=== PATIENT | male | born 1950 | race Caucasian/White ===

== ENCOUNTER 2020-04-23 19:43 | Emergency (ER) | payer OTHER, SELFPAY ==
[2020-04-23 20:08] VITALS: BP 133/71; PULSE 65; RESP 18; TEMP 36.7; O2SAT 97
--- NOTE | 2020-04-23 20:16 | ED.WOUNDLAC ---
HPI - Wound/Laceration General Chief Complaint: Wound/Laceration Stated Complaint: laceration Time Seen by Provider: 04/23/20 20:16 Source: patient Mode of arrival: ambulatory Limitations: no limitations History of Present Illness HPI narrative: Maurice Alvaerz is a 9 yo male who fell 1.5 hours ago doing exercises and cut L eyebrow .Superficial laceration Related Data Home Medications Medication Instructions Recorded Confirmed aspirin 325 mg tablet 325 mg PO DAILY 12/03/19 04/23/20 benztropine 1 mg tablet 1 mg PO DAILY tablet 12/03/19 04/23/20 blood sugar diagnostic #10 each 12/03/19 bupropion HCl 200 mg tablet,12 hr 200 mg PO DAILY tablet 12/03/19 04/23/20 sustained-release lancets #50 each 12/03/19 mirtazapine 30 mg tablet 30 mg PO .COMPLEX 12/03/19 04/23/20 olanzapine 7.5 mg tablet 7.5 mg PO .COMPLEX 12/03/19 04/23/20 pen needle, diabetic 31 gauge x #30 each 12/03/1901/11 syringe with needle #300 each 12/03/19 insulin glargine [Lantus Solostar 40 unit SUBCUT 04/23/20 U-100 Insulin] Allergies Allergy/AdvReac Type Severity Reaction Status Date / Time No Known Allergies Allergy Verified 04/23/20 19:45 Review of Systems Review of Systems: Narrative: CONSTITUTIONAL: Denies fever, chills, sweats. EYES: Denies visual changes, redness, discharge. ENT: Denies rhinorrhea, congestion, sore throat, otalgia. CARDIOVASCULAR: Denies chest pain, palpitations, edema. RESPIRATORY: Denies dyspnea, wheezing, cough GASTROINTESTINAL: Denies abdominal pain, nausea, vomiting, diarrhea. GENITOURINARY: Denies dysuria, hematuria, abnormal discharge SKIN: Denies rash or itching.small lac to L eyebrow NEUROLOGIC: Denies numbness, or focal weakness. PSYCHIATRIC: Denies anxiety or depression. [facility] Family History Family History (Updated 04/23/20 @ 20:43 by Rosa Anguiano CNP) Other Hypertension Social History Social History (Updated 04/23/20 @ 20:43 by Rosa Anguiano CNP) Smoking status: Never smoker Alcohol intake: current Gender identity (if verbalized by the patient): Male Comments At time of signature, I agree with nursing past medical, surgical, social and family history. There is no relevant family history pertinent to the presenting complaint. Exam Narrative: Exam Narrative: GENERAL: This is a well-nourished, well-developed patient, in mild distress. HEAD: normocephalic, atraumatic. EYES: Sclera clear/white. Vision is grossly intact. EARS: External ears normal, auditory canals clear and without drainage, TMs normal without perforation. Hearing grossly intact. NOSE: External nose normal without nasal discharge, nares without redness, no rhinorrhea. THROAT: Mucous membranes moist, posterior pharynx NECK: Neck supple, non-tender CARDIOVASCULAR: Regular rate and rhythm without murmurs, gallops, or rubs. RESPIRATORY: Clear to auscultation. Breath sounds equal bilaterally. No wheezes, rales, or rhonchi. GASTROINTESTINAL: Abdomen soft, non-tender, SKIN: warm, intact with no suspicious lesions or rash, good texture and turgor.1.5 cm linear laceration, L eyebrow NEURO: awake, alert, and oriented to person, place and time. There were no obvious focal neurologic abnormalities. Steady gait EXTREMITIES: Normal range of motion. BACK: Nontender without deformity Course Course Emergency Course: Superficial lac repair done- tolerated well Boostrix given Vital Signs Vital signs: Vital Signs Temperature 98.0 F 04/23/20 20:08 Pulse Rate 65 04/23/20 20:08 Respiratory Rate 18 04/23/20 20:08 Blood Pressure 133/71 04/23/20 20:08 Pulse Oximetry 97 04/23/20 20:08 Temperature 98.0 F 04/23/20 20:08 Pulse Rate 65 04/23/20 20:08 Respiratory Rate 18 04/23/20 20:08 Blood Pressure 133/71 04/23/20 20:08 Pulse Oximetry 97 04/23/20 20:08 Procedures Laceration Laceration 1: Date: 04/23/20 Time: 20:30 Site: face Size (cm): 1.5 [place]
[2020-04-23] MEDS: TETANUS,DIPHTHERIA,AC PERTUSSIS ADULT (0.5 ML) BOOSTRIX IM (20:33)
== END 2020-04-23 20:50 | disposition home or self-care (01) ==
PROVIDERS: Emergency Provider Nurse Practitioner; PCP Emergency Medicine
DX: S01.112A Laceration without foreign body of left eyelid and periocular area, initial encounter (principal); Z23 Encounter for immunization; G20 Parkinson's disease; Z95.1 Presence of aortocoronary bypass graft; E78.00 Pure hypercholesterolemia, unspecified; I10 Essential (primary) hypertension; I25.10 Atherosclerotic heart disease of native coronary artery without angina pectoris; K21.9 Gastro-esophageal reflux disease without esophagitis; N40.0 Benign prostatic hyperplasia without lower urinary tract symptoms; E11.9 Type 2 diabetes mellitus without complications; Z79.82 Long term (current) use of aspirin; Z79.4 Long term (current) use of insulin; Z79.84 Long term (current) use of oral hypoglycemic drugs; W19.XXXA Unspecified fall, initial encounter
CPT/HCPCS: 12011; 90471; 90715; 99212; G0463

== ENCOUNTER 2021-04-27 09:07 | Outpatient (CLI) | payer OTHER, SELFPAY ==
[2021-04-27 13:39] LABS: Creatinine Urine 60.5 mg/dL
[2021-04-27 13:41] LABS: MALB Creatinine Ratio < 9.9 mg/g (0-30); Microalbumin Urine Random < 6.0 mg/L (0-16.7)
== END 2021-04-27 09:08 | disposition home or self-care (01) ==
PROVIDERS: PCP Emergency Medicine; Visit Provider Emergency Medicine
DX: E11.9 Type 2 diabetes mellitus without complications (principal)
CPT/HCPCS: 82043

== ENCOUNTER 2023-02-07 13:43 | Outpatient (CLI) | payer OTHER, SELFPAY ==
[2023-02-07 14:02] LABS: Hematocrit 43.2 % (42.0-52.0); Hemoglobin 14.1 g/dL (14.0-18.0); Mean Corpuscular HGB Conc 32.6 g/dl (32-36); Mean Corpuscular Hemoglobin 30.5 pg (26-34); Mean Corpuscular Volume 93.3 fl (80-100); Mean Platelet Volume 10.4 fl (7.4-10.4); Platelet Count Result 224 k/mm3 (150-375); Red Blood Count 4.63 M/mm3 (4.6-6.20); Red Cell Distribution Width 13.6 % (11.5-14.5); White Blood Count 10.6 K/mm3 (4.5-10.0)
== END 2023-02-07 13:44 | disposition home or self-care (01) ==
LOC: ANHLAB 13:45
PROVIDERS: PCP Emergency Medicine; Visit Provider Nurse Practitioner
DX: R63.0 Anorexia (principal); R63.4 Abnormal weight loss
CPT/HCPCS: 36415; 85027

== ENCOUNTER 2023-02-16 07:55 | Outpatient (CLI) | payer OTHER, SELFPAY ==
--- NOTE | ~2023-02-16 | NM_ITS ---
EXAM: NM gastric emptying study DATE: 02/16/2023 13:16 CDT INDICATION: Early satiety TECHNIQUE: A gastric emptying study was performed using the methodology of Ana Maíra LOREDO, et al. J Nucl Med 2007; 48:568-572. The patient was given a meal consisting of 2 scrambled eggs labeled with 0.981 mCi Tc-99m sulfur colloid, 2 slices of toast, two packages of jam, and approximately 120 mL of water . Simultaneous anterior and posterior 1-min images of the abdomen were obtained with the patient supi ne at multiple time points over a total period of 4 hours. The geometric mean of anterior and posteri or views was determined, and the percentage retention was calculated for each time point. COMPARISON: None. FINDINGS: Gastric retention of the radiotracer-labeled meal was 65%, 10%, and 3% at the 1-hour, 2-ho ur, and 4-hour time points, respectively. With this technique, apparent rapid gastric emptying is sug gested by <30% gastric retention at 1 hour. Delayed gastric emptying is defined by gastric retention of >90% at 1 hour, >60% retention at 2 hours, or >10% retention at 4 hours. IMPRESSION: 1. Normal gastric emptying. Reviewed, dictated and finalized at location A. IMPRESSION: 1. Normal gastric emptying.
== END 2023-02-16 07:56 | disposition home or self-care (01) ==
PROVIDERS: PCP Emergency Medicine; Visit Provider Nurse Practitioner
DX: R63.0 Anorexia (principal); R63.4 Abnormal weight loss
CPT/HCPCS: 78264; A9541

== ENCOUNTER 2023-04-06 16:40 | Emergency (ER) | payer OTHER, SELFPAY ==
[2023-04-06 16:43] VITALS: BP 140/68; PULSE 66; RESP 16; TEMP 36.7; O2SAT 99
[2023-04-06 17:15] LABS: Basophils Absolute Auto 0.1 K/mm3 (0.0-0.1); Basophils Percent Auto 0.6 % (0.2-1.2); Eosinophils Absolute Auto 0.3 K/mm3 (0-0.3); Eosinophils Percent Auto 2.6 % (0-4.4); Hematocrit 41.1 % (42.0-52.0); Hemoglobin 13.5 g/dL (14.0-18.0); Immature Granulocyte Absolute 0.03 K/mm3 (0.00-0.031); Immature Granulocyte Percent A 0.3 % (0-0.5); Lymphocytes Absolute Auto 2.62 K/mm3 (0.9-3.2); Lymphocytes Percent Auto 25.7 % (18.3-44.2); Mean Corpuscular HGB Conc 32.8 g/dl (32-36); Mean Corpuscular Hemoglobin 30.6 pg (26-34); Mean Corpuscular Volume 93.2 fl (80-100); Mean Platelet Volume 10.4 fl (7.4-10.4); Monocytes Absolute Auto 0.5 K/mm3 (0.1-0.6); Monocytes Percent Auto 5.2 % (2.6-8.5); Neutrophils Absolute Auto 6.7 K/mm3 (1.3-6.7); Neutrophils Percent Auto 65.6 % (45.5-73.1); Platelet Count Result 239 k/mm3 (150-375); Red Blood Count 4.41 M/mm3 (4.6-6.20); Red Cell Distribution Width 13.4 % (11.5-14.5); White Blood Count 10.2 K/mm3 (4.5-10.0)
[2023-04-06 17:26] LABS: Ethanol < 10 mg/dL (<10)
[2023-04-06 17:27] LABS: Alanine Aminotransferase 21 U/L (6-50); Albumin Level 4.9 g/dL (3.5-5.1); Alkaline Phosphatase 86 U/L (38-126); Anion Gap 9 mmol/L (8-16); Aspartate Amino Transferase 26 U/L (17-59); Bilirubin,Total 0.6 mg/dL (0.2-1.3); Blood Urea Nitrogen 24 mg/dL (9-20); Calcium 9.4 mg/dL (8.4-10.2); Carbon Dioxide 29 mmol/L (22-30); Chloride 101 mmol/L (98-107); Estimated CRCL calculation 59 ml/min; Estimated Glomerular Filt Rate > 60; Glucose 190 mg/dL (65-110); Potassium 4.4 mmol/L (3.4-5.0); Sodium 139 mmol/L (137-145)
[2023-04-06 18:49] VITALS: PULSE 64
[2023-04-06 18:50] VITALS: BP 142/69; PULSE 63; RESP 18; O2SAT 100
[2023-04-06 19:01] LABS: Appearance Urine Clear (Clear); Bacteria Urine None Seen /hpf; Bilirubin Urine Negative (Negative); Blood Urine Negative (Negative); Color Urine Yellow (Yellow); Glucose Urine UA 2+ mg/dL (Negative); Ketones Urine 1+ mg/dL (Negative); Leukocyte Esterase Ur Trace LEU/UL (Negative); Nitrate Urine Negative (Negative); Protein Urine Negative (Negative); RBC Urine 0-2 /hpf (0-2); Specific Grav Ur 1.025 (1.001-1.035); Squamous Epithelial Cell Urine Few /hpf (Few)
[2023-04-06 19:04] LABS: Add Urine Microscopic? YES
[2023-04-06 19:11] LABS: Amphetamine Screen Urine Negative (Negative); Barbiturate Screen Urine Negative (Negative); Benzodiazepines Screen Urine Negative (Negative); Cannabinoid Screen Urine Negative (Negative); Cocaine Screen Urine Negative (Negative); Methadone Screen Urine Negative (Negative); Opiate Screen Urine Negative (Negative); Phencyclidine Screen Urine Negative (Negative)
--- NOTE | 2023-04-06 19:51 | ED.GENADULT ---
HPI - General Adult General Chief complaint: Altered Mental Status Stated complaint: [facility] Time Seen by Provider: 04/06/23 19:12 History of Present Illness HPI narrative: Patient is a 72-year-old gentleman who presents the emergency department with chief complaint of needs mental health evaluation. Patient has prior history of schizophrenia and has been a resident of [facility] with a local assisted living facilities for about a year family has noticed over the last month or so that he has been acting similar to whenever he has had mental health episodes in the past. 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 the patient was brought in by EMS after he was apparently trying to hitchhike and mated to a towing pilot gas station where EMS and PD were called the family reports that he has had ECT treatments before in the past the last one about 5 years ago the patient denies suicidal or homicidal ideation Related Data Home Medications Medication Instructions Recorded Confirmed carbidopa ER 25 mg-levodopa 100 mg 1 tablet PO BID 03/15/22 02/07/23 tablet,extended release mirtazapine 15 mg tablet 15 mg PO QHS 03/15/22 02/07/23 olanzapine 5 mg tablet (Zyprexa) 5 mg PO QHS 03/15/22 02/07/23 trihexyphenidyl 2 mg tablet 2 mg PO QPM 03/15/22 02/07/23 Allergies Allergy/AdvReac Type Severity Reaction Status Date / Time No Known Allergies Allergy Verified 04/06/23 18:49 Review of Systems Review of Systems: A 10 system review of systems was completed on the patient and is negative except for what is stated in the HPI. Nursing and ancillary documentation was reviewed. [facility] Past Medical History Medical History Abnormal weight loss Change in bowel habits Decrease in appetite Diabetes mellitus Early satiety GERD (gastroesophageal reflux disease) Hx of colonic polyps Parkinsons Family History Family History Other Hypertension Social History Social History Smoking packs per day: 1 Smoking cigarettes per day: 20.0 Years smoked: 12 Smoking pack-years: 12.00 Smoking status: Former smoker Tobacco type: cigarettes Second hand tobacco smoke exposure: No Smoking end date: 10/29/71 Alcohol intake: never Substance use: never Substance use type: does not use Gender identity (if verbalized by the patient): Male Exam Narrative: GENERAL: Well-appearing, well-nourished, and in no acute distress. HEAD: Normocephalic, atraumatic. EYES: PERRLA and EOMI. ENT: Nares clear, no rhinorrhea or epistaxis. Mucous membranes moist. NECK: Supple. CHEST: Clear to auscultation. No respiratory distress. HEART: Regular rate and rhythm. No murmur heard. Normal peripheral pulses. ABDOMEN: Soft, nontender, nondistended, normal active bowel sounds. EXTREMITIES: Normal range of motion. No edema. SKIN: Warm, dry, no rash. NEURO: No focal deficits. Alert and oriented x3. PSYCH: Normal mood and affect. Course Vital Signs Vital signs: Vital Signs Temperature 36.7 C 04/06/23 16:43 Pulse Rate 66 04/06/23 16:43 Respiratory Rate 16 04/06/23 16:43 Blood Pressure 140/68 04/06/23 16:43 Pulse Oximetry 99 04/06/23 16:43 Oxygen Delivery Room Air 04/06/23 16:43 Temperature 36.7 C 04/06/23 16:43 Pulse Rate 63 04/06/23 18:50 Respiratory Rate 18 04/06/23 18:50 Blood Pressure 142/69 H 04/06/23 18:50 Pulse Oximetry 100 04/06/23 18:50 Oxygen Delivery Room Air 04/06/23 16:43 Medical Decision Making [facility] Narrative Medical decision making narrative: Differential diagnosis includes underlying medical cause such as electrolyte abnormality infection, mental health related issue due to the patient's schizophrenia
[2023-04-06 20:29] LABS: Influenza A QL RT-PCR Negative (Negative); Influenza B QL RT-PCR Negative (Negative); RSV RNA, RT-PCR Negative (Negative); SARS-CoV-2 RNA PCR Negative (Negative)
[2023-04-06 20:35] LABS: Acetaminophen < 10 ug/mL (10-30); Salicylate < 1.0 mg/dL (2-20)
[2023-04-06 23:57] VITALS: BP 150/88; PULSE 80; RESP 12; O2SAT 100
== END 2023-04-06 23:59 ==
PROVIDERS: Emergency Medicine; Emergency Provider Emergency Medicine; PCP Emergency Medicine
DX: F32.A Depression, unspecified (principal); Z20.822 Contact with and (suspected) exposure to COVID-19; G20 Parkinson's disease; E11.9 Type 2 diabetes mellitus without complications; K21.9 Gastro-esophageal reflux disease without esophagitis; Z79.899 Other long term (current) drug therapy
CPT/HCPCS: 36415; 80053; 80307; 81001; 84443; 85025; 87086; 87637; 99284

== ENCOUNTER → 2023-07-10 12:51 | Outpatient (CLI) | payer OTHER, SELFPAY ==
--- NOTE | ~2023-07-10 | MR_ITS ---
MRI of the left shoulder Technique: Axial proton-density fat-sat images, coronal proton density fat-sat and T2 fat-sat images, and sagittal T1-weighted and T2 fat-sat images were acquired. Clinical History: Pain Findings: There is moderate to severe AC joint degenerative change. There is subacromial spur. Coraco clavicular, coracoacromial, and coracohumeral ligaments probably remain intact. There are complete, full-thickness tears involving the entirety of the supraspinatus and infraspinatu s tendons, which are retracted approximately to the level of glenoid. Fluid-filled gap measures appro ximately 5.1 x 4.7 cm in extent. Subscapularis tendon appears to be intact with moderate tendinosis. Tendon of long head of the biceps demonstrates possible longitudinal split tear in the bicipital groo ve. There is degenerative tearing of the superior labrum, probably extending to the posterior superior po rtion. Humeral head is high riding, with moderate osteoarthritis of the glenohumeral joint. Inferior glenohu meral ligament is intact. Probable mild atrophy of the supraspinatus and infraspinatus muscle bellies . Impression: Complete, full-thickness tears involving entirety of the specimen at its and infraspinatus tendons, a s detailed above. Probable mild atrophy of the associated muscle bellies. High riding humeral head with moderate osteoarthritis of the glenohumeral joint. Degenerative tearing of the superior labrum, with probable extension to the posterior superior portio n. Moderate to severe AC joint degenerative change. Suspected longitudinal split tear of the biceps tendon within the bicipital groove. Reviewed, dictated and finalized at location M. Impression: Complete, full-thickness tears involving entirety of the specimen at its and in fraspinatus tendons, as detailed above. Probable mild atrophy of the associated muscle bellies. High riding humeral head with moderate osteoarthritis of the glenohumeral joint . Degenerative tearing of the superior labrum, with probable extension to the pos terior superior portion. Moderate to severe AC joint degenerative change. Suspected longitudinal split tear of the biceps tendon within the bicipital gali ove.
== END ==
PROVIDERS: PCP Emergency Medicine; Visit Provider Emergency Medicine
DX: S46.812A Strain of other muscles, fascia and tendons at shoulder and upper arm level, left arm, initial encounter (principal); M19.012 Primary osteoarthritis, left shoulder; T14.90XA Injury, unspecified, initial encounter
CPT/HCPCS: 73221

== ENCOUNTER 2023-12-13 22:43 | Emergency (ER) | payer OTHER, SELFPAY ==
[2023-12-13 22:46] VITALS: BP 145/63; PULSE 58; RESP 14; TEMP 36.6; O2SAT 99
[2023-12-13 23:48] VITALS: BP 146/84; PULSE 64; RESP 15; O2SAT 100
--- NOTE | 2023-12-14 00:58 | ED.GENADULT ---
HPI - General Adult General Chief complaint: Unspecified Stated complaint: constipation Time Seen by Provider: 12/13/23 23:47 Source: patient Limitations: no limitations History of Present Illness HPI narrative: Patient is a 73-year-old male presents to the emergency department complaining of constipation. Patient states he has had difficulty with his bowel movements for the past 10 days and has only had small palpable so and no significant large bowel movement when he is hoped for. Patient admits to an extensive history of constipation and usually gets better with time and stool softeners. Patient has tried MiraLax was recently at this afternoon without any significant relief. Patient is to history of colonoscopies. Patient denies seeing a e business manager on a regular basis. Patient denies any new or change medications denies any opioid use. Patient denies history of cancer. Patient denies anuria, nausea, vomiting, fever, chest pain, difficulty breathing, recent injuries or recent illness. Patient has some mild discomfort in his rectal region with the constipation. Patient denies weight loss. Patient denies melena, hematochezia, acute onset of constipation. Related Data Home Medications Medication Instructions Recorded Confirmed polyethylene glycol 3350 17 17 g PO DAILY 08/31/23 gram/dose oral powder (Gavilax) Allergies Allergy/AdvReac Type Severity Reaction Status Date / Time No Known Allergies Allergy Verified 08/03/23 10:22 Review of Systems Review of Systems: A 10 system review of systems was completed on the patient and is negative except for what is stated in the HPI. Nursing and ancillary documentation was reviewed. [facility] Past Medical History Medical History Abnormal weight loss Change in bowel habits Decrease in appetite Diabetes mellitus Early satiety GERD (gastroesophageal reflux disease) Hx of colonic polyps Parkinsons Family History Family History Other Hypertension Social History Social History Smoking packs per day: 1 Smoking cigarettes per day: 20.0 Years smoked: 12 Smoking pack-years: 12.00 Smoking status: Former smoker Tobacco type: cigarettes Second hand tobacco smoke exposure: No Smoking end date: 10/29/71 Alcohol intake: never Substance use: never Substance use type: does not use Lack of Transportation: No Lack of Food: Never True Current Housing: I Have Housing Concerned About Future Housing: No Difficulty Paying Gas/Electric Bills: No Difficulty Paying for Meds: No Currently Unemployed: No Education: Associate Degree Difficulty w/ Childcare or Family Care: No Gender identity (if verbalized by the patient): Male Comments At time of signature, I have reviewed and agree with nursing past medical, surgical, social and family history unless otherwise noted. Please see the nursing chart for further information. There is no relevant family history pertinent to the presenting complaint. Exam Narrative: CONST: No acute distress. Well nourished. HENMT: Head is normocephalic and atraumatic. Moist mucous membranes. No posterior oropharynx erythema. EYES: No conjunctival icterus, injection, or pallor. PERRL. NECK: No meningeal signs. RESP: Able to speak in full sentences. Normal respiratory effort. CTAB. CARDIO: Regular rate. Regular rhythm. 2+ DP and radial pulses bilaterally. GI: Nondistended. No tenderness to palpation. Soft. : No CVA tenderness to palpation. SKIN: No rashes or lesions noted on exposed skin. NEURO: Oriented x3. Moves all extremities. EXTREM/MSK/BACK: No pedal edema. PSYCH: Normal affect. Course Vital Signs Vital signs: Vital Signs Temperature 97.9 F 12/13/23 22:46 Pulse Rate 58 L 12/13/23 22:46 Respiratory
[2023-12-14] MEDS: polyethylene glycoL 3350 17 GM POWD.PACK PO (01:02)
--- NOTE | 2023-12-14 02:59 | PC.NURSE ---
see downtime paperwork
[2023-12-14 03:34] VITALS: BP 142/88; PULSE 61; RESP 15; O2SAT 98
== END 2023-12-14 03:36 ==
PROVIDERS: Emergency Provider Student in an Organized Health Care Education/Training Program; PCP Emergency Medicine
DX: K59.00 Constipation, unspecified (principal); G20.A1 Parkinson's disease without dyskinesia, without mention of fluctuations; E11.9 Type 2 diabetes mellitus without complications; K21.9 Gastro-esophageal reflux disease without esophagitis; Z86.010 Personal history of colon polyps; Z87.891 Personal history of nicotine dependence; Z79.84 Long term (current) use of oral hypoglycemic drugs; Z79.82 Long term (current) use of aspirin
CPT/HCPCS: 99283

== ENCOUNTER 2023-12-24 19:34 | Emergency (ER) | payer OTHER, SELFPAY ==
--- NOTE | ~2023-12-24 | CT_ITS ---
EXAMINATION: CT cervical spine wo con DATE: 12/24/2023 22:32 INDICATION: Fall TECHNIQUE: Computed tomography (CT) of the cervical spine was performed without intravenous contrast. Automated exposure control and iterative reconstruction technique were employed. The dose-length pro duct was 223.98 mGy-cm. COMPARISON: None. FINDINGS: Vertebral Body Alignment: Intact. Craniocervical and atlantoaxial alignment: Moderate degenerative change. Alignment intact. Osseous structures/fracture: No evidence of a lytic or blastic process in the visualized spine. No e vidence of acute fracture. Cervical soft tissues: The paraspinal soft tissues planes are maintained. Degenerative changes: Multilevel severe degenerative disc disease, with multilevel interbody fusions and ossification of the anterior longitudinal ligament. IMPRESSION: No acute fracture or traumatic malalignment in the cervical spine. Reviewed, dictated and finalized at location K. ACCOUNTING MANAGER
--- NOTE | ~2023-12-24 | CT_ITS ---
EXAMINATION: CT brain wo con DATE: 12/24/2023 22:32 INDICATION: Fall . TECHNIQUE: Computed tomography (CT) of the head was performed without intravenous contrast. The mA wa s adjusted according to patient size. Iterative reconstruction technique was employed. The dose-lengt h product was 681.00 mGy-cm. COMPARISON: MRI brain 08/02/2016. FINDINGS: No acute intracranial hemorrhage or extra-axial fluid collection. No hydrocephalus, mass, or herniation. No acute ischemic infarct. Unremarkable dural venous sinus attenuation. No acute osseous abnormality. Right maxillary retention cyst/polyp, mild ethmoid mucosal thickening, the remaining aerated spaces a re clear. Mild atrophy and chronic white matter change. Atherosclerotic intracranial calcification. IMPRESSION: No acute intracranial process. Reviewed, dictated and finalized at location K. ERCIAL ART INSTRUCTOR
[2023-12-24 19:44] VITALS: BP 133/56; PULSE 56; RESP 15; TEMP 36.1; O2SAT 99
[2023-12-24 21:50] VITALS: BP 121/50; PULSE 55; RESP 15; TEMP 36.6; O2SAT 97
--- NOTE | 2023-12-24 23:00 | ED.GENADULT ---
HPI - General Adult General Chief complaint: Fall Stated complaint: fall Time Seen by Provider: 12/24/23 21:47 History of Present Illness HPI narrative: this is a 73-year-old male history of Parkinson like disease presenting for a fall. Patient said he tripped over his carpet struck his head. No loss of consciousness. No use of blood thinners. No other symptoms or prodrome. Related Data Home Medications Medication Instructions Recorded Confirmed polyethylene glycol 3350 17 17 g PO DAILY 08/31/23 gram/dose oral powder (Gavilax) Allergies Allergy/AdvReac Type Severity Reaction Status Date / Time No Known Allergies Allergy Verified 08/03/23 10:22 [facility] Past Medical History Medical History Abnormal weight loss Change in bowel habits Decrease in appetite Diabetes mellitus Early satiety GERD (gastroesophageal reflux disease) Hx of colonic polyps Parkinsons Family History Family History Other Hypertension Social History Social History Smoking packs per day: 1 Smoking cigarettes per day: 20.0 Years smoked: 12 Smoking pack-years: 12.00 Smoking status: Former smoker Tobacco type: cigarettes Second hand tobacco smoke exposure: No Smoking end date: 10/29/71 Alcohol intake: never Substance use: never Substance use type: does not use Lack of Transportation: No Lack of Food: Never True Current Housing: I Have Housing Concerned About Future Housing: No Difficulty Paying Gas/Electric Bills: No Difficulty Paying for Meds: No Currently Unemployed: No Education: Associate Degree Difficulty w/ Childcare or Family Care: No Gender identity (if verbalized by the patient): Male Exam Narrative: APPEARANCE: No apparent distress. Head: 1.5 x 1.5cm shallow L shaped laceration over the patient's right eyebrow EYES: EOMI, NOSE: Atraumatic NECK: Trachea midline RESPIRATORY: No increased rate of breathing CTAB CARDIOVASCULAR: RRR, ABDOMINAL: Non-distended soft nontender MUSCULOSKELETAl: No obvious deformities NEURO: Alert. Cranial nerves 2-12 grossly intact. Sensation light touch, motor function cerebellar function intact for 4 extremities. Gait exam was deferred SKIN:: Warm, dry. Normal color PSYCHIATRIC: Normal affect Course Vital Signs Vital signs: Vital Signs Temperature 97 F L 12/24/23 19:44 Pulse Rate 56 L 12/24/23 19:44 Respiratory Rate 15 12/24/23 19:44 Blood Pressure 133/56 L 12/24/23 19:44 Pulse Oximetry 99 12/24/23 19:44 Oxygen Delivery Room Air 12/24/23 19:44 Temperature 98 F 12/24/23 21:50 Pulse Rate 55 L 12/24/23 21:50 Respiratory Rate 15 12/24/23 21:50 Blood Pressure 121/50 L 12/24/23 21:50 Pulse Oximetry 97 12/24/23 21:50 Oxygen Delivery Room Air 12/24/23 19:44 Procedures Laceration Laceration 1: Date: 12/24/23 Site: face Side (If applicable): right Size (cm): 3.0 Description: flap Depth: simple, single layer Pre-repair: irrigated extensively ====== Skin Level ====== Skin layer closed with: dermabond ====== Subcutaneous Layer ====== ====== Muscle Layer ====== ====== Tendon Layer ====== Medical Decision Making MDM Narrative Medical decision making narrative: -Course: 73-year-old male with Parkinson's presenting after a mechanical fall. CT is negative for traumatic injury. Laceration was repaired using Dermabond. Patient discharged back to the Assisted living. -DDX includes but is not limited to: ICH, concussion, neck injury -Co-morbidities complicating care: Parkinson's and frequent falls -Social determinants of health: [facility]. -Independent interpretation of studies: CT is negative -Procedures: laceration repair with Dermabo
[2023-12-24 23:17] VITALS: BP 148/60; PULSE 55; RESP 16; TEMP 36.7; O2SAT 99
== END 2023-12-24 23:18 | disposition home or self-care (01) ==
LOC: ANHED 23:12
PROVIDERS: Emergency Provider Emergency Medicine; PCP Emergency Medicine
DX: S01.81XA Laceration without foreign body of other part of head, initial encounter (principal); E11.9 Type 2 diabetes mellitus without complications; G20.A1 Parkinson's disease without dyskinesia, without mention of fluctuations; Z87.891 Personal history of nicotine dependence; W01.0XXA Fall on same level from slipping, tripping and stumbling without subsequent striking against object, initial encounter
CPT/HCPCS: 12013; 70450; 72125; 99284